=== PATIENT | male | born 2000 ===

== ENCOUNTER 2018-05-17 20:53 | Observation (INO) | payer BC, OTHER ==
[2018-05-17] MEDS ORDERED: Sodium Chloride 0.9% 1,000 ML IV STA (21:06)
[2018-05-17] MEDS ORDERED: DiphenhydrAMINE 50 mg/ml Inj IVP STA (21:06)
[2018-05-17] MEDS ORDERED: DiphenhydrAMINE 50 mg/ml Inj ONE (21:18)
--- NOTE | 2018-05-17 21:24 | ED PDOC ---
HPI: Allergic Reaction Time Seen by Provider: 05/17/18 21:00 Chief Complaint (Nursing): Allergic Reaction Chief Complaint (Provider): Allergic Reaction History Per: Patient History/Exam Limitations: no limitations Onset/Duration Of Symptoms: Mins (30x minutes prior to arrival) Current Symptoms Are (Timing): Still Present Possible Cause: Medication (aspirin), Food (ramen) Associated Symptoms: Swelling (lip swelling). denies: Trouble Swallowing Home/EMS Treatment: None Severity: Moderate Additional Complaint(s): 18 year old male with no past medical history presents to the ED for an evaluation of an allergic reaction that started 30x minutes prior to arrival. Patient reports taking 3x aspirin tablets prior to leaving his house today for a headache, and after eating ramen he developed lip swelling (30x minutes prior to arrival). Patient reports that his breathing was mildly labored, but he was not concerned. Patient denies having throat swelling and a history of allergic reactions. Of note: Patient reports that he has been experiencing a rash to his body on and off for several months. PMD: None provided. Past Medical History Reviewed: Historical Data, Nursing Documentation, Vital Signs Vital Signs: Last Vital Signs Temp 98.0 F 05/17/18 20:58 Pulse 65 05/17/18 20:58 Resp BP 137/72 05/17/18 20:58 Pulse Ox 99 05/17/18 20:58 KELLI Report Viewed: Yes - Medical History PMH: No Chronic Diseases Denies: HIV, Kidney Stones, Chronic Kidney Disease - Family History Family History: States: No Known Family Hx - Social History Current smoker - smoking cessation education provided: No Alcohol: None Drugs: Denies - Home Medications Home Medications: Ambulatory Orders Medication Instructions Recorded Albuterol HFA [Ventolin HFA 90 2 puff IH [id number] PRN #1 puff 02/03/ mcg/actuation (8 g)] DiphenhydrAMINE [Benadryl] 50 mg PO Q6 PRN #24 cap 05/17/18 Epinephrine [Epipen] 0.3 mg IJ ONCE PRN #2 auto.injct 05/17/18 Famotidine [Pepcid] 20 mg PO BID #10 tab 05/17/18 predniSONE [predniSONE Tab] 3 tab PO DAILY #12 tab 05/17/18 - Allergies Allergies/Adverse Reactions: Allergies Allergy/AdvReac Type Severity Reaction Status Date / Time No Known Allergies Allergy Verified 05/18/16 08:20 Review of Systems ROS Statement: Except As Marked, All Systems Reviewed And Found Negative ENT: Positive for: Other (lip swelling). Negative for: Throat Swelling Skin: Positive for: Rash (diffuse) Physical Exam - Reviewed Nursing Documentation Reviewed: Yes Vital Signs Reviewed: Yes - Physical Exam Appears: Positive for: Well, Non-toxic, No Acute Distress Head Exam: Positive for: ATRAUMATIC, NORMOCEPHALIC Skin: Positive for: Warm, Dry, Rash (urticaria noted to chest, abdomen, upper and lower extremities) Eye Exam: Positive for: Normal appearance ENT: Positive for: Other (moderate lip swelling) Cardiovascular/Chest: Positive for: Regular Rate, Rhythm Respiratory: Positive for: Normal Breath Sounds Neurologic/Psych: Positive for: Alert, Oriented (3x) - ECG O2 Sat by Pulse Oximetry: 99 (RA) Pulse Ox Interpretation: Normal Disposition - Clinical Impression Clinical Impression: Acute allergic reaction - Patient ED Disposition Is Patient to be Admitted: Transfer of Care - Disposition Disposition: Transfer of Care Disposition Time: 23:52 Condition: FAIR Prescriptions: DiphenhydrAMINE [Benadryl] 50 mg PO Q6 PRN #24 cap PRN Reason: Rash Epinephrine [Epipen] 0.3 mg IJ ONCE PRN #2 auto.injct PRN Reason: Anaphylaxis Famotidine [Pepcid] 20 mg PO BID #10 tab predniSONE [predniSONE Tab] 3 tab PO DAILY #12 tab Patient Signed Over To: Cesilia Nair Handoff Comments: pending re-evaluation in 1-2 hours. Medical Decision Making Medical Decision Makin:00 Initial impression: 18 year old male with an allergic reaction Initial plan: * IV NS 1,000 ml IV 1,000 mls/hr * benadryl 50 mg IVP * pepcid 20 mg IVP * solumedrol 125 mg IVP * reevaluation --------- -------- Scribe Attestation: Documented byJacinda Mcguire, acting as a scribe for Rafael Alamo PA-C. Provider Scribe Attestation: All medical record entries made by the Scribe were at my direction and personally dictated by me. I have reviewed the chart and agree that the record accurately reflects my personal performance of the history, physical exam, medical decision making, and the department course for this patient. I have also personally directed, reviewed, and agree with the discharge instructions and d isposition.
--- NOTE | 2018-05-18 00:11 | ED PDOC ---
- ECG O2 Sat by Pulse Oximetry: 99 (RA) Medical Decision Making Medical Decision Making: Patient endorsed to me by SUZE Alamo pending re-evaluation of lip swelling after a few hours. 2am: Pt re-evaluated, lip swelling unchanged, ordered for additional 50mg IV Benadryl. Pt to be admitted under Dr. Junior for observation on tele. Disposition - Clinical Impression Clinical Impression: Acute allergic reaction - Disposition Condition: FAIR Prescriptions: DiphenhydrAMINE [Benadryl] 50 mg PO Q6 PRN #24 cap PRN Reason: Rash Epinephrine [Epipen] 0.3 mg IJ ONCE PRN #2 auto.injct PRN Reason: Anaphylaxis Famotidine [Pepcid] 20 mg PO BID #10 tab predniSONE [predniSONE Tab] 3 tab PO DAILY #12 tab Forms: [employer] ([employer])
[2018-05-18] MEDS ORDERED: DiphenhydrAMINE 50 mg/ml Inj IVP STA (01:58)
[2018-05-18] MEDS ORDERED: DiphenhydrAMINE 50 mg/ml Inj ONE (02:19)
[2018-05-18] MEDS ORDERED: methylPREDNISolone 40 MG in Sodium Chloride 0.9% 50 ML IVPB SCH (04:00)
--- NOTE | 2018-05-18 04:17 | CP.PCM.HP ---
<Tono Long - Last Filed: 05/18/18 03:42> History of Present Illness - History of Present Illness History of Present Illness: 18 y/o M with no pertinent PMHx presented due to allergic reaction. Pt reports upper lip swelling and numbness, nausea, mild dizziness and feeling hot around 8 pm, 20 minutes after starting eating Pork Traditional Ramen Soup. Pt denies tongue swelling, SOB, wheezing, headache, chest pain, palpitations, vomiting or diarrhea. Pt also took 3 small pills of Aspirin yesterday morning due to headache but no immediate reaction to it. Pt has eaten pork before with NO reactions. --Pt also explains that for the last 2-3 months, he has been experiencing intermittent erythematous pruritic hives on back, upper arms and neck. Pt takes unspecified OTC PO allergy medication with improvement of pruritus and rash. However, these episodes has become more frequent. (Pt has pictures of rash) --Pt also reports a similar less intense episode of lip swelling 4 weeks ago, pt used OTC topical Abreva with resolution. --Pt denies Hx of allergies to food or medications. No changes in detergents, soap or perfumes. PCP: None NKDA Meds: None. (Unsp OTC PO allergy med) -PMHx: Appendectomy that was treated medically. -PSHx: denied -FHx: Father has Psoriasis, is smoker and has stage IV lung cancer. Mother is smoker but no health problems for now. -SHx: Smoker, 2-3 cigarettes a day, denies alcohol, denies rec drugs. At ED: --IV NSS bolus x1, Benadryl IV 50mg x2, Pepcid 20mg x1 Present on Admission - Present on Admission Any Indicators Present on Admission: No History of DVT/PE: No History of Uncontrolled Diabetes: No Urinary Catheter: No Review of Systems - Constitutional Constitutional: absent: Anorexia - EENT Nose/Mouth/Throat: absent: Epistaxis, Nasal Congestion, Nasal Discharge, Nasal Obstruction, Facial Pain, Neck Mass - Cardiovascular Cardiovascular: absent: Acrocyanosis, Chest Pain - Respiratory Respiratory: absent: Cough, Dyspnea, Hemoptysis - Gastrointestinal Gastrointestinal: Nausea. absent: Abdominal Pain, Bloating, Temesmus, Vomiting - Genitourinary Genitourinary: absent: Dysuria, Flank Pain, Urinary Frequency - Integumentary Integumentary: Pruritus, Rash Past Patient History - Past Social History Alcohol: None Drugs: Denies - CARDIAC Hx Cardiac Disorders: No - PULMONARY Hx Respiratory Disorders: No - NEUROLOGICAL Hx Neurological Disorder: No - HEENT Hx HEENT Problems: No - RENAL Hx Chronic Kidney Disease: No Hx Kidney Stones: No - ENDOCRINE/METABOLIC Hx Endocrine Disorders: No - HEMATOLOGICAL/ONCOLOGICAL Hx Human Immunodeficiency Virus (HIV): No - INTEGUMENTARY Hx Basil Cell: No - MUSCULOSKELETAL/RHEUMATOLOGICAL Hx Musculoskeletal Disorders: No Hx Falls: No - GASTROINTESTINAL Hx Gastrointestinal Disorders: No Other/Comment: vomiting , diarrhea since 1 am - GENITOURINARY/GYNECOLOGICAL Hx Genitourinary Disorders: No Other/Comment: circumcised - PSYCHIATRIC Hx Substance Use: No - SURGICAL HISTORY Hx Surgeries: No - ANESTHESIA Hx Anesthesia: No Hx Anesthesia Reactions: No Hx Malignant Hyperthermia: No Meds Allergies/Adverse Reactions: Allergies Allergy/AdvReac Type Severity Reaction Status Date / Time No Known Allergies Allergy Verified 05/18/16 08:20 Physical Exam - Constitutional Appears: No Acute Distress - Head Exam Head Exam: ATRAUMATIC, NORMAL INSPECTION, NORMOCEPHALIC - Eye Exam Eye Exam: EOMI, Normal appearance - ENT Exam ENT Exam: Mucous Membranes Moist, Normal Oropharynx Additional comments: Swollen upper lip, NO erythema, gingival mucosa is intact with NO lesions. Tongue is normal, posterior oropharynx with NO erythema. - Neck Exam Neck exam: Positive for: Full Rom, Normal Inspection. Negative for: Meningismus, Tenderness - Respiratory Exam Respiratory Exam: Clear to Auscultation Bilateral, NORMAL BREATHING PATTERN. absent: Wheezes, Respiratory Distress, Stridor - Cardiovascular Exam Cardiovascular Exam: Bradycardia, +S1, +S2 - GI/Abdominal Exam GI & Abdominal Exam: Normal Bowel Sounds, Soft. absent: Guarding, Rebound, Rigid, Tenderness - Extremities Exam Extremities exam: Positive for: full ROM, normal inspection. Negative for: calf tenderness, pedal edema - Neurological Exam Neurological exam: Alert, Oriented x3 - Psychiatric Exam Psychiatric exam: Normal Affect, Normal Mood - Skin Skin Exam: Warm Additional comments: Presence of a mild linear non-raised erythema on L upper arm (pt reports that urticaria usually starts like that). On posterior thorax, presence of a few linear non-raised erythematous lesions. No presence of appreciable urticaria on anterior and posterior thorax and on b/l upper and lower extremities. Results - Vital Signs Recent Vital Signs: Last Vital Signs Temp 98.0 F 05/17/18 20:58 Pulse 58 L 05/17/18 22:32 Resp 14 05/17/18 22:32 BP 127/64 05/17/18 22:32 Pulse Ox 99 05/18/18 02:46 Assessment & Plan - Assessment and Plan (Free Text) Assessment: 18 y/o M with no pertinent PMHx presented is admitted for evaluation and konrad gement of acute allergic reaction and recurrent urticaria. PLAN: >Acute allergic reaction --Afebrile, bradicardic. --Solu-Medrol 40mg Q6H --IV Benadryl 25mg Q6H --IV Famotidine 20mg Q6H --F/U AM labs: CBC, CMP, TSH, UDS, hep C Ab, HIV, ESR, U/A >Recurrent urticaria --Sub-acute, afebrile --F/U AM labs: CBC, CMP, TSH, UDS, hep C Ab, HIV, ESR, U/A --May need outpatient further work-up >DVT Prophylaxis --Low risk. --Ambulation encouraged --SCD's PRN Discussed with Dr Junior, hospitalist anshu PGY-2. - Date & Time Date: 05/18/18 Time: 04:00 <Zac Junior - Last Filed: 05/18/18 05:49> Results - Vital Signs Recent Vital Signs: Last Vital Signs Temp 98.0 F 05/17/18 20:58 Pulse 51 L 05/18/18 05:15 Resp 19 05/18/18 05:15 BP 123/58 L 05/18/18 04:33 Pulse Ox 98 05/18/18 05:15 - Labs Result Diagrams: 05/18/18 04:28 05/18/18 04:28 Labs: Laboratory Results - last 24 hr 05/18/18 05/18/18 05/18/18 04:28 04:28 04:28 WBC 8.5 RBC 5.00 Hgb 14.6 Hct 43.5 MCV 86.9 D MCH 29.3 MCHC 33.7 RDW 13.1 Plt Count 194 MPV 7.8 Neut % (Auto) 91.7 H Lymph % (Auto) 7.3 L Bladen % (Auto) 0.9 Eos % (Auto) 0.0 Baso % (Auto) 0.1 Neut # (Auto) 7.8 H Lymph # (Auto) 0.6 L Bladen # (Auto) 0.1 Eos # (Auto) 0.0 Baso # (Auto) 0.0 Neutrophils % (Manual) 86 H Band Neutrophils % 2 Lymphocytes % (Manual) 8 L Monocytes % (Manual) 4 Platelet Estimate Normal Sodium 135 Potassium 4.3 Chloride 101 Carbon Dioxide 24 Anion Gap 14 BUN 18 Creatinine 0.8 Est GFR ( Amer) > 60 Est GFR (Non-Af Amer) > 60 Random Glucose 163 H Calcium 9.6 Total Bilirubin 0.2 AST 22 ALT 25 Alkaline Phosphatase 59 Total Protein 7.2 Albumin 4.2 Globulin 2.9 Albumin/Globulin Ratio 1.4 TSH 3rd Generation 0.42 L Urine Color Urine Clarity Urine pH Ur Specific [place] Urine Protein Urine Glucose (UA) Urine Ketones Urine Blood Urine Nitrate Urine Bilirubin Urine Urobilinogen Ur Leukocyte Esterase Urine RBC (Auto) Urine Microscopic WBC Urine Opiates Screen Urine Methadone Screen Ur Barbiturates Screen Ur Phencyclidine Scrn Ur Amphetamines Screen U Benzodiazepines Scrn U Oth Cocaine Metabols U Cannabinoids Screen 05/18/18 05/18/18 04:28 04:28 WBC RBC Hgb Hct MCV MCH MCHC RDW Plt Count MPV Neut % (Auto) Lymph % (Auto) Bladen % (Auto) Eos % (Auto) Baso % (Auto) Neut # (Auto) Lymph # (Auto) Bladen # (Auto) Eos # (Auto) Baso # (Auto) Neutrophils % (Manual) Band Neutrophils % Lymphocytes % (Manual) Monocytes % (Manual) Platelet Estimate Sodium Potassium Chloride Carbon Dioxide Anion Gap BUN Creatinine Est GFR ( Amer) Est GFR (Non-Af Amer) Random Glucose Calcium Total Bilirubin AST ALT Alkaline Phosphatase Total Protein Albumin Globulin Albumin/Globulin Ratio TSH 3rd Generation Urine Color Yellow Urine Clarity Clear Urine pH 6.0 Ur Specific [place] 1.013 Urine Protein Negative Urine Glucose (UA) Neg Urine Ketones Negative Urine Blood Negative Urine Nitrate Negative Urine Bilirubin Negative Urine Urobilinogen 0.2-1.0 Ur Leukocyte Esterase Neg Urine RBC (Auto) < 1 Urine Microscopic WBC < 1 Urine Opiates Screen Negative Urine Methadone Screen Negative Ur Barbiturates Screen Negative Ur Phencyclidine Scrn Negative Ur Amphetamines Screen Negative U Benzodiazepines Scrn Negative U Oth Cocaine Metabols Negative U Cannabinoids Screen Positive H Attending/Attestation - Attestation I have personally seen and examined this patient.: Yes I have fully participated in the care of the patient.: Yes I have reviewed all pertinent clinical information: Yes Notes (Text): 05/18/18 05:29 I saw, examined and discussed this patient with Dr Long. I agree with the assessment and plan outlined above. This is a 18 years old male with hx of joint pains, who has been having intermittent Urticarial rashes diffuse on the skin for months. This became worse on the day prior to admission, associated with swelling of the upper lip. In the ED Cannibis was positive and the patient was treated with Benadryl, Methylprednisolone and Pepcid. The rashes Improved but the swollen lip continued. The patient is being admitted with this Allergic reaction with Urtericarial rash and angioedema. Continue Steroids, H1 and H2 blockers. We will r/o Urticarial Vasculitis and follow ESR, CH50 and LUIS MANUEL Telemetry monitoring for Bradycardia and follow TSH. Zac Junior MD 0
[2018-05-18 04:36] LABS: BASO % 0.1 % (0.0-2.0); HEMOGLOBIN 14.6 g/dL (12.0-18.0); LYMPH # 0.6 K/uL (1.0-4.3); LYMPH % 7.3 % (20.0-40.0); MEAN CELL VOLUME 86.9 fl (80.0-94.0); MEAN CORPUSCULAR HEMOGLOBIN 29.3 pg (27.0-31.0); MEAN CORPUSCULAR HGB CONC 33.7 g/dL (33.0-37.0); MEAN PLATELET VOLUME 7.8 fl (7.2-11.7); MONO # 0.1 K/uL (0.0-0.8); MONO % 0.9 % (0.0-10.0); NEUT # 7.8 K/uL (1.8-7.0); NEUT % 91.7 % (50.0-75.0); PLATELET COUNT 194 K/uL (130-400); RED CELL DISTRIBUTION WIDTH 13.1 % (11.5-14.5); URINE BILIRUBIN NEGATIVE (NEGATIVE); URINE BLOOD NEGATIVE (NEGATIVE); URINE CLARITY CLEAR (Clear); URINE COLOR YELLOW (YELLOW); URINE GLUCOSE (UA) NEG (NEGATIVE); URINE LEUKOCYTE ESTERASE NEG Leu/uL (Negative); URINE PROTEIN NEGATIVE (NEGATIVE); URINE UROBILINOGEN 0.2-1.0 mg/dL (0.2-1.0); WHITE BLOOD COUNT 8.5 K/uL (4.8-10.8)
[2018-05-18 04:47] LABS: ALB/GLOB RATIO 1.4 (1.0-2.1); ALBUMIN 4.2 g/dL (3.5-5.0); ALT/SGPT 25 U/L (21-72); AST/SGOT 22 U/L (17-59); BLOOD UREA NITROGEN 18 mg/dl (9-20); CALCIUM 9.6 mg/dL (8.4-10.2); GFR NON-AFRICAN AMERICAN > 60
[2018-05-18 04:50] LABS: BARBITURATES, UR NEGATIVE (NEGATIVE); BENZODIAZEPINES, UR NEGATIVE (NEGATIVE); OPIATES, UR NEGATIVE (NEGATIVE); PHENCYCLIDINE, UR NEGATIVE (NEGATIVE)
[2018-05-18] MEDS ORDERED: Famotidine 40 MG/5 ML PO SCH ×2 (05:00→09:00)
[2018-05-18 05:10] LABS: BANDS 2 % (0-2); LYMPHOCYTE 8 % (20-50); MONOCYTE 4 % (0-10); NEUTROPHIL 86 % (42-75); PLATELET ESTIMATE NORMAL (NORMAL); TOTAL CELLS COUNTED 100
[2018-05-18 05:34] VITALS: RESP 20
[2018-05-18] MEDS: MethylPREDNISolone 40 mg Vial IVP SCH ×2 (06:54→11:36)
[2018-05-18] MEDS ORDERED: DiphenhydrAMINE 50 mg/ml Inj IVP SCH (08:00)
[2018-05-18 08:53] VITALS: BP 106/64; PULSE 55; O2SAT 99
--- NOTE | 2018-05-18 09:57 | CP.PCM.DIS ---
<Alva Banks - Last Filed: 05/18/18 12:06> Provider - Provider Date of Admission: 05/18/18 02:44 Attending physician: Zac Junior Primary care physician: Dr. Brizuela Duvall Consults: none during this visit Time Spent in preparation of Discharge (in minutes): 30 Hospital Course - Lab Results Lab Results: Most Recent Lab Values WBC 8.5 K/uL (4.8-10.8) 05/18/18 04:28 RBC 5.00 Mil/uL (4.40-5.90) 05/18/18 04:28 Hgb 14.6 g/dL (12.0-18.0) 05/18/18 04:28 Hct 43.5 % (35.0-51.0) 05/18/18 04:28 MCV 86.9 fl (80.0-94.0) D 05/18/18 04:28 MCH 29.3 pg (27.0-31.0) 05/18/18 04:28 MCHC 33.7 g/dL (33.0-37.0) 05/18/18 04:28 RDW 13.1 % (11.5-14.5) 05/18/18 04:28 Plt Count 194 K/uL (130-400) 05/18/18 04:28 MPV 7.8 fl (7.2-11.7) 05/18/18 04:28 Neut % (Auto) 91.7 % (50.0-75.0) H 05/18/18 04:28 Lymph % (Auto) 7.3 % (20.0-40.0) L 05/18/18 04:28 [place] % (Auto) 0.9 % (0.0-10.0) 05/18/18 04:28 Eos % (Auto) 0.0 % (0.0-4.0) 05/18/18 04:28 Baso % (Auto) 0.1 % (0.0-2.0) 05/18/18 04:28 Neut # (Auto) 7.8 K/uL (1.8-7.0) H 05/18/18 04:28 Lymph # (Auto) 0.6 K/uL (1.0-4.3) L 05/18/18 04:28 [place] # (Auto) 0.1 K/uL (0.0-0.8) 05/18/18 04:28 Eos # (Auto) 0.0 K/uL (0.0-0.7) 05/18/18 04:28 Baso # (Auto) 0.0 K/uL (0.0-0.2) 05/18/18 04:28 Neutrophils % (Manual) 86 % (42-75) H 05/18/18 04:28 Band Neutrophils % 2 % (0-2) 05/18/18 04:28 Lymphocytes % (Manual) 8 % (20-50) L 05/18/18 04:28 Monocytes % (Manual) 4 % (0-10) 05/18/18 04:28 Platelet Estimate Normal (NORMAL) 05/18/18 04:28 ESR 0 mm/hr (0-15) 05/18/18 06:45 Sodium 135 mmol/l (132-148) 05/18/18 04:28 Potassium 4.3 MMOL/L (3.6-5.0) 05/18/18 04:28 Chloride 101 mmol/L (98-107) 05/18/18 04:28 Carbon Dioxide 24 mmol/L (22-30) 05/18/18 04:28 Anion Gap 14 (10-20) 05/18/18 04:28 BUN 18 mg/dl (9-20) 05/18/18 04:28 Creatinine 0.8 mg/dl (0.8-1.5) 05/18/18 04:28 Est GFR ( Amer) > 60 05/18/18 04:28 Est GFR (Non-Af Amer) > 60 05/18/18 04:28 Random Glucose 163 mg/dL (75-110) H 05/18/18 04:28 Calcium 9.6 mg/dL (8.4-10.2) 05/18/18 04:28 Total Bilirubin 0.2 mg/dl (0.2-1.3) 05/18/18 04:28 AST 22 U/L (17-59) 05/18/18 04:28 ALT 25 U/L (21-72) 05/18/18 04:28 Alkaline Phosphatase 59 U/L (38-126) 05/18/18 04:28 Total Protein 7.2 G/DL (6.3-8.2) 05/18/18 04:28 Albumin 4.2 g/dL (3.5-5.0) 05/18/18 04:28 Globulin 2.9 gm/dL (2.2-3.9) 05/18/18 04:28 Albumin/Globulin Ratio 1.4 (1.0-2.1) 05/18/18 04:28 TSH 3rd Generation 0.42 mIU/ML (0.46-4.68) L 05/18/18 04:28 Urine Color Yellow (YELLOW) 05/18/18 04:28 Urine Clarity Clear (Clear) 05/18/18 04:28 Urine pH 6.0 (5.0-8.0) 05/18/18 04:28 Ur Specific [place] 1.013 (1.003-1.030) 05/18/18 04:28 Urine Protein Negative mg/dL (NEGATIVE) 05/18/18 04:28 Urine Glucose (UA) Neg mg/dL (NEGATIVE) 05/18/18 04:28 Urine Ketones Negative mg/dL (NEGATIVE) 05/18/18 04:28 Urine Blood Negative (NEGATIVE) 05/18/18 04:28 Urine Nitrate Negative (NEGATIVE) 05/18/18 04:28 Urine Bilirubin Negative (NEGATIVE) 05/18/18 04:28 Urine Urobilinogen 0.2-1.0 mg/dL (0.2-1.0) 05/18/18 04:28 Ur Leukocyte Esterase Neg [place]/uL (Negative) 05/18/18 04:28 Urine RBC (Auto) < 1 /hpf (0-3) 05/18/18 04:28 Urine Microscopic WBC < 1 /hpf (0-5) 05/18/18 04:28 Urine Opiates Screen Negative (NEGATIVE) 05/18/18 04:28 Urine Methadone Screen Negative (NEGATIVE) 05/18/18 04:28 Ur Barbiturates Screen Negative (NEGATIVE) 05/18/18 04:28 Ur Phencyclidine Scrn Negative (NEGATIVE) 05/18/18 04:28 Ur Amphetamines Screen Negative (NEGATIVE) 05/18/18 04:28 U Benzodiazepines Scrn Negative (NEGATIVE) 05/18/18 04:28 U Oth Cocaine Metabols Negative (NEGATIVE) 05/18/18 04:28 U Cannabinoids Screen Positive (NEGATIVE) H 05/18/18 04:28 - Hospital Course Hospital Course: 18 y/o M with no pertinent PMHx presented due to allergic reaction. Pt reported upper lip swelling and numbness, however denied tongue swelling, SOB, wheezing, headache, chest pain, palpitations, vomiting or diarrhea at the time of ED visit. Patient reports similar symptoms occurring for the past 2 years, with erythematous pruritic hives on back, upper arms and neck. Pt takes OTC PO allergy medication with improvement of pruritus and rash. These episodes have become more frequent, however patient has been unable to see a specialist. Patient states he has two dogs at home, however he has had them for many years. Patient denies recent move or change in detergents/soaps. Patient states there is family history of allergic reactions Acute allergic reaction -Afebrile, bradycardic -Solu-Medrol 40mg Q6H -IV Benadryl 25mg Q6H -IV Famotidine 20mg Q6H -positive for cannabinoids in urine -Rx Claritin, Medrol Dose pack, and Pepcid -patient advised not to take Benadryl prior to work Bradycardia - asymptomatic - patient was monitored - T3/T4 were ordered Recurrent urticaria -Sub-acute, afebrile -Referrals to local allergy specialists given to patient - Date & Time of H&P Date of H&P: 05/18/18 Time of H&P: 09:56 Discharge Exam - Head Exam Head Exam: ATRAUMATIC, NORMAL INSPECTION, NORMOCEPHALIC - Eye Exam Eye Exam: Normal appearance, PERRL - ENT Exam ENT Exam: Normal Oropharynx Additional comments: angio edema noted of the upper lip, no erythema, no lesions - Neck Exam Neck exam: Full Rom - Respiratory Exam Respiratory Exam: Clear to PA & Lateral, NORMAL BREATHING PATTERN. absent: Rales, Rhonchi - Cardiovascular Exam Cardiovascular Exam: Bradycardia, +S1, +S2 - GI/Abdominal Exam GI & Abdominal Exam: Normal Bowel Sounds. absent: Distended, Firm, Guarding - Rectal Exam Rectal Exam: Deferred - Extremities Exam Extremities exam: full ROM, normal capillary refill - Neurological Exam Neurological exam: Alert, Oriented x3 - Psychiatric Exam Psychiatric exam: Normal Affect, Normal Mood - Skin Skin Exam: Rash Additional comments: diffuse mild linear non-raised erythematous lesions on L upper arm and posterior thorax Discharge Plan - Discharge Medications Prescriptions: Famotidine 20 mg PO DAILY #15 tablet Loratadine [Claritin] 10 mg PO DAILY #15 tab Methylprednisolone [Medrol Dose Pack (21 tabs)] 4 mg PO ASDIR #21 mg - Follow Up Plan Condition: FAIR Disposition: HOME/ ROUTINE Patient education suggested?: Yes Instructions: Food Allergy, Allergy Testing Additional Instructions: Patient to follow up with product info specialist within 1 week Referrals: Viral Shepherd MD [Staff Provider] - Alejandro Jin MD [Staff Provider] - <Xena Lee - Last Filed: 05/18/18 15:52> Provider - Provider Date of Admission: 05/18/18 02:44 Attending physician: Zac Hughes [facility] Course - Lab Results Lab Results: Most Recent Lab Values WBC 8.5 K/uL (4.8-10.8) 05/18/18 04:28 RBC 5.00 Mil/uL (4.40-5.90) 05/18/18 04:28 Hgb 14.6 g/dL (12.0-18.0) 05/18/18 04:28 Hct 43.5 % (35.0-51.0) 05/18/18 04:28 MCV 86.9 fl (80.0-94.0) D 05/18/18 04:28 MCH 29.3 pg (27.0-31.0) 05/18/18 04:28 MCHC 33.7 g/dL (33.0-37.0) 05/18/18 04:28 RDW 13.1 % (11.5-14.5) 05/18/18 04:28 Plt Count 194 K/uL (130-400) 05/18/18 04:28 MPV 7.8 fl (7.2-11.7) 05/18/18 04:28 Neut % (Auto) 91.7 % (50.0-75.0) H 05/18/18 04:28 Lymph % (Auto) 7.3 % (20.0-40.0) L 05/18/18 04:28 [place] % (Auto) 0.9 % (0.0-10.0) 05/18/18 04:28 Eos % (Auto) 0.0 % (0.0-4.0) 05/18/18 04:28 Baso % (Auto) 0.1 % (0.0-2.0) 05/18/18 04:28 Neut # (Auto) 7.8 K/uL (1.8-7.0) H 05/18/18 04:28 Lymph # (Auto) 0.6 K/uL (1.0-4.3) L 05/18/18 04:28 [place] # (Auto) 0.1 K/uL (0.0-0.8) 05/18/18 04:28 Eos # (Auto) 0.0 K/uL (0.0-0.7) 05/18/18 04:28 Baso # (Auto) 0.0 K/uL (0.0-0.2) 05/18/18 04:28 Neutrophils % (Manual) 86 % (42-75) H 05/18/18 04:28 Band Neutrophils % 2 % (0-2) 05/18/18 04:28 Lymphocytes % (Manual) 8 % (20-50) L 05/18/18 04:28 Monocytes % (Manual) 4 % (0-10) 05/18/18 04:28 Platelet Estimate Normal (NORMAL) 05/18/18 04:28 ESR 0 mm/hr (0-15) 05/18/18 06:45 Sodium 135 mmol/l (132-148) 05/18/18 04:28 Potassium 4.3 MMOL/L (3.6-5.0) 05/18/18 04:28 Chloride 101 mmol/L (98-107) 05/18/18 04:28 Carbon Dioxide 24 mmol/L (22-30) 05/18/18 04:28 Anion Gap 14 (10-20) 05/18/18 04:28 BUN 18 mg/dl (9-20) 05/18/18 04:28 Creatinine 0.8 mg/dl (0.8-1.5) 05/18/18 04:28 Est GFR ( Amer) > 60 05/18/18 04:28 Est GFR (Non-Af Amer) > 60 05/18/18 04:28 Random Glucose 163 mg/dL (75-110) H 05/18/18 04:28 Calcium 9.6 mg/dL (8.4-10.2) 05/18/18 04:28 Total Bilirubin 0.2 mg/dl (0.2-1.3) 05/18/18 04:28 AST 22 U/L (17-59) 05/18/18 04:28 ALT 25 U/L (21-72) 05/18/18 04:28 Alkaline Phosphatase 59 U/L (38-126) 05/18/18 04:28 Total Protein 7.2 G/DL (6.3-8.2) 05/18/18 04:28 Albumin 4.2 g/dL (3.5-5.0) 05/18/18 04:28 Globulin 2.9 gm/dL (2.2-3.9) 05/18/18 04:28 Albumin/Globulin Ratio 1.4 (1.0-2.1) 05/18/18 04:28 Thyroxine (T4) 8.76 ug/dl (5.5-11.0) 05/18/18 09:57 Total T3 1.44 nmol/L (1.49-2.60) L 05/18/18 09:57 TSH 3rd Generation 0.42 mIU/ML (0.46-4.68) L 05/18/18 04:28 Urine Color Yellow (YELLOW) 05/18/18 04:28 Urine Clarity Clear (Clear) 05/18/18 04:28 Urine pH 6.0 (5.0-8.0) 05/18/18 04:28 Ur Specific [place] 1.013 (1.003-1.030) 05/18/18 04:28 Urine Protein Negative mg/dL (NEGATIVE) 05/18/18 04:28 Urine Glucose (UA) Neg mg/dL (NEGATIVE) 05/18/18 04:28 Urine Ketones Negative mg/dL (NEGATIVE) 05/18/18 04:28 Urine Blood Negative (NEGATIVE) 05/18/18 04:28 Urine Nitrate Negative (NEGATIVE) 05/18/18 04:28 Urine Bilirubin Negative (NEGATIVE) 05/18/18 04:28 Urine Urobilinogen 0.2-1.0 mg/dL (0.2-1.0) 05/18/18 04:28 Ur Leukocyte Esterase Neg [place]/uL (Negative) 05/18/18 04:28 Urine RBC (Auto) < 1 /hpf (0-3) 05/18/18 04:28 Urine Microscopic WBC < 1 /hpf (0-5) 05/18/18 04:28 Urine Opiates Screen Negative (NEGATIVE) 05/18/18 04:28 Urine Methadone Screen Negative (NEGATIVE) 05/18/18 04:28 Ur Barbiturates Screen Negative (NEGATIVE) 05/18/18 04:28 Ur Phencyclidine Scrn Negative (NEGATIVE) 05/18/18 04:28 Ur Amphetamines Screen Negative (NEGATIVE) 05/18/18 04:28 U Benzodiazepines Scrn Negative (NEGATIVE) 05/18/18 04:28 U Oth Cocaine Metabols Negative (NEGATIVE) 05/18/18 04:28 U Cannabinoids Screen Positive (NEGATIVE) H 05/18/18 04:28 Hepatitis C Antibody Negative (NEGATIVE) 05/18/18 04:28 Attending/Attestation - Attestation I have personally seen and examined this patient.: Yes I have fully participated in the care of the patient.: Yes I have reviewed all pertinent clinical information, including history, physical exam and plan: Yes Notes (Text): Angioedema/Allergic Reaction - Pt's symptom improved - will d/c pt home on PO Medrol dose radha and Claritin , - needs further Allergy testing /work up as outpt
[2018-05-18 11:33] VITALS: TEMP 98.6
--- NOTE | 2018-05-18 12:35 | CARD ---
APPROVED REPORT Date of service: 05/18/2018 EKG Measurement Heart [id number] <Conclusion> Unusual P axis, possible ectopic atrial bradycardia Early repolarization Abnormal ECG
[2018-05-18 13:09] LABS: HEPATITIS C ANTIBODY NEGATIVE (NEGATIVE)
[2018-05-18 13:43] LABS: T4 8.76 ug/dl (5.5-11.0)
[2018-05-18 13:57] LABS: T3 1.44 nmol/L (1.49-2.60)
--- NOTE | 2018-05-22 11:14 | CARD ---
APPROVED REPORT Date of service: 05/18/2018 EKG Measurement Heart [id number] <Conclusion> Unusual P axis, possible ectopic atrial bradycardia Abnormal ECG
== END 2018-05-18 12:00 | disposition home or self-care (01) ==
LOC: H.ER 20:53 → H.ERHOLD 05-18 02:44 → INTOOBSV 05-18 02:44 → H.TEL 05-18 04:28
PROVIDERS: ADMIT Internal Medicine; ATTEND Internal Medicine
DX: T78.3XXA Angioneurotic edema, initial encounter (principal); F17.210 Nicotine dependence, cigarettes, uncomplicated; R00.1 Bradycardia, unspecified
CPT/HCPCS: 36415; 80053; 81003; 84436; 84443; 84480; 85025; 85651; 86039; 86162; 86803; 87389; 93005; 96361; 96374; 96375; 96376; 99283; G0378; G0480; J1200; J2920; J2930; J7030